=== PATIENT | female | born 1990 | race Caucasian/White ===

== ENCOUNTER 2018-08-19 08:13 | Inpatient (IN) | payer MEDICARE, OTHER ==
[2018-08-19] MEDS ORDERED: BUPIV. HCL 0.25% (2.5MG/ML)/EPI. (1:200,000) PF 30 ML VIAL IJ ONE (08:48)
[2018-08-19] MEDS ORDERED: SEVOFLURANE 250 ML LIQUID IH ONE (08:48)
[2018-08-19] MEDS ORDERED: ceFAZolin SODIUM 1 GM VIAL ONE (08:48)
[2018-08-19] MEDS ORDERED: LEVALBUTEROL NEB 1.25 MG/3 ML VIAL.NEB NEB ONE (08:48)
[2018-08-19] MEDS ORDERED: SCOPOLAMINE HYDROBROMIDE 1.5MG/72HR PATCH TD ONE (08:48)
[2018-08-19] MEDS ORDERED: LIDOCAINE HCL 1% PF 300MG/30ML VIAL ONE (08:48)
[2018-08-19] MEDS ORDERED: fentaNYL CITRATE/PF 100 MCG/2 ML INJ. ONE (08:48)
[2018-08-19] MEDS ORDERED: ROCURONIUM BROMIDE 10 MG/ML 5ML VIAL ONE (08:48)
[2018-08-19] MEDS ORDERED: LIDOCAINE HCL 2% PF 100MG/5ML VIAL IJ ONE (08:48)
[2018-08-19] MEDS ORDERED: PROPOFOL 200 MG/20 ML VIAL IV ONE (08:48)
[2018-08-19] MEDS ORDERED: LACTATED RINGERS 1,000 ML IV.SOLN IV ONE (08:48)
[2018-08-19] MEDS ORDERED: MIDAZOLAM HCL 2 MG/2 ML VIAL ONE (08:48)
[2018-08-19] MEDS ORDERED: ESMOLOL HCL 100 MG/10 ML IV ONE (08:48)
[2018-08-19] MEDS ORDERED: NORMAL SALINE 1,000 ML IV.SOLN IV ONE (08:48)
[2018-08-19] MEDS ORDERED: FAMOTIDINE 20 MG/2 ML VIAL IV ONE (08:48)
[2018-08-19] MEDS ORDERED: SUGAMMADEX SODIUM 200 MG/2 ML VIAL IV ONE (08:48)
[2018-08-19] MEDS ORDERED: HYDROcodone-ACETAMIN 7.5-325/15ML SOLN UD CUP PO PRN (13:13)
[2018-08-19] MEDS ORDERED: LEVALBUTEROL NEB 1.25 MG/3 ML VIAL.NEB IH PRN (13:13)
[2018-08-19] MEDS ORDERED: MORPHINE SULFATE 4 MG/ML VIAL IVP PRN (13:13)
[2018-08-19] MEDS ORDERED: MORPHINE SULFATE 10MG/0.5ML ORAL SOLN UD CUP PO PRN (13:13)
[2018-08-19 13:37] VITALS: BMI 41.3
[2018-08-19] MEDS: 0.9 % SODIUM CHLORIDE 1,000 ML IV SCH (13:46)
[2018-08-19] MEDS: ONDANSETRON HCL/PF 4 MG/ 2ML VIAL IVP PRN (13:52)
--- NOTE | 2018-08-19 13:58 | History and Physical Report ---
History of Present Illnes - History of Present Illness Reason for Visit: S/P LSG History of Present Illness: Patient is a 27-year-old female who has tried multiple diets and exercise programs with no success. She states that she has always struggled with her weight- admits to eating lots of fast food. It was decided to go ahead with LSG. Procedure went well- patient will be admitted and monitored s/p surgical intervention. Patient has been on a liquid diet prior to surgery so she is a risk of dehydration s/p surgery. She will be admitted for IV hydration to help hydrate patient until she is able to tolerate a sufficient oral intake, will treat pain with IV medication until patient is able to tolerate oral meds, IV antiemetics to help reduce episodes of nausea and/or vomiting. Patient will be monitored closely using telemetry. She will wear CPAP (brought in by patient) for GILES. 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 denies: Influenza Vaccine Influenza Vaccine: No, Patient Refused Pneumonia Vaccine: No Resuscitation Status: Resusciation Status Resuscitation Status Full Code Review of Systems - Review of Systems Constitutional: negative: Fever, Chills Eyes: negative: conjunctivae inflammation, eyelid inflammation ENT: negative: Ear Pain, Nose Pain, Throat Pain Respiratory: negative: Cough, Shortness of Breath Cardiovascular: negative: Chest Pain Gastrointestinal: Nausea, Abdominal Pain, Other (pt is stating that she is hungry- discussed diet). negative: Vomiting Genitourinary: negative: Dysuria Musculoskeletal: negative: Back Pain Skin: Other (incision site x 5) Neurological: negative: Weakness, Incoordination - Medications/Allergies Allergies/Adverse Reactions: Allergies Allergy/AdvReac Type Severity Reaction Status Date / Time No Known Allergies Allergy Verified 08/19/18 12:51 Home Medications: Home Medications Benztropine Mesylate 1 mg PO BID 08/19/18 Bupropion HCl [Bupropion Xl] 300 mg PO DAILY 08/19/18 Loxapine Succinate [Loxitane] 50 mg PO BID 08/19/18 Omeprazole 20 mg PO DAILY 08/19/18 Risperidone 3 mg PO BID 08/19/18 Sertraline HCl [Zoloft] 100 mg PO DAILY 08/19/18 Current Inpatient Medications: Current Inpatient Medications Hydrocodone Bitart/Acetaminophen (Hycet 7.5-325mg/15 Ml Ud Cup) 15 ml PO Q4 PRN PRN Reason: PAIN 5-7 Stop: 08/23/18 13:12 Cefazolin Sodium/Dextrose (Ancef 1 Gm/50 Ml-Dextrose) 1 gm IV Q8H [facility] Stop: 08/20/18 03:01 Enoxaparin Sodium (Lovenox) 40 mg SQ DAILY [facility] Stop: 09/03/18 08:59 Famotidine (Pepcid) 20 mg IVP BID [facility] Stop: 08/23/18 20:59 Promethazine HCl 25 mg/ Sodium (Chloride) 51 mls @ 200 mls/hr IV Q6 PRN PRN Reason: Nausea / Vomiting Stop: 08/23/18 13:12 Sodium Chloride (Normal Saline) 1,000 mls @ 150 mls/hr IV Q8H [facility] Last Admin: 08/19/18 13:46 Dose: 150 mls/hr Ketorolac Tromethamine (Toradol) 30 mg IV Q6H PRN PRN Reason: For Mild Pain Stop: 08/23/18 13:12 Levalbuterol HCl (Xopenex Neb) 1.25 mg IH Q4H PRN PRN Reason: Wheezing Morphine Sulfate () 4 mg IVP Q2 PRN PRN Reason: PAIN 8-10 Stop: 08/20/18 13:12 Morphine Sulfate (Roxanol) 10 mg PO Q4 PRN PRN Reason: PAIN 8-10 Stop: 08/23/18 13:12 Ondansetron HCl (Zofran) 4 mg IVP Q6H PRN PRN Reason: Nausea / Vomiting Stop: 08/23/18 13:12 Last Admin: 08/19/18 13:52 Dose: 4 mg Exam - Exam Vital Signs: Vital Signs (72 hours) 08/19/18 08/19/18 08/19/18 13:07 13:13 13:32 Temperature 96.8 F L 96.8 F L Pulse Rate 80 Pulse Rate [ 82 82 Pulse ox] Respiratory 20 20 Rate Blood Pressure 148/100 148/100 [Left Arm] O2 Sat by Pulse 94 94 94 Oximetry General: Alert, Oriented to Person, Oriented to Place, Oriented to Time, Cooperative, Mild distress, Morbidly Obese HEENT: PERRLA, Nose Mucous membr. moist/[place] Neck: Normal Range of Motion Carotids: no bruit Lungs: Clear to auscultation, Normal air movement, Speaks full Sentences Cardiovascular: Regular rate, Normal S1, Normal S2 Peripheral Edema: None Peripheral Pulses: 2+ Abdomen: Soft, Decreased Bowel Sounds Integumentary: Warm, Dry, Pale, Other (incision sites x 5 intact) Extremities: No edema, Normal pulses, No tenderness/swelling Neurological: Normal speech, Strength Equal Bilat, Normal tone, Sensation intact Psych/Mental Status: Mental status NL, Mood NL, Appropriate Affect, Intact Judgment Assessment/Plan - Assessment/Plan (1) Status post gastric surgery Status: Acute Current Visit: Yes Plan: Plan to admit for IV hydration, IV pain meds, and IV antiemetics. Lovenox and SCDs to help prevent DVTs, IS and frequent ambulation will be implemented. Start ice chips and advance diet as tolerated. (2) Morbid obesity due to excess calories Status: Acute Current Visit: Yes Plan: Patient is s/p gastric sleeve. We will assist patient with implementing gastric sleeve diet protocol starting with ice chips and clear liquids and advancing as tolerated once nausea is controlled and patient is able to tolerate PO (3) GILES on CPAP Status: Acute Current Visit: Yes Plan: Patient will use CPAP (4) GERD (gastroesophageal reflux disease) Status: Acute Current Visit: Yes Qualifiers: Esophagitis presence: esophagitis presence not specified Qualified Code(s): K21.9 - Gastro-esophageal reflux disease without esophagitis Plan: Will give Pepcid IV BID (5) Anxiety Status: Acute Current Visit: Yes Plan: Will hold meds at this time and monitor closely VTE Assessment - RISK FACTOR SCORE VTE RISK FACTOR SCORES: OBESITY, SMOKER, MAJOR SURGERY/ANESTHESIA TIME > 1 HOUR - RISK VTE HIGH RISK: SCORE OF 3-4 (RISK PROXIMAL DVT 4-8%) PROPHYLAXIS NEEDED (Lovenox daily, frequent ambulation, SCDs in bed, IS)
--- NOTE | 2018-08-19 14:30 | Operative Note ---
PREOPERATIVE DIAGNOSIS: 1. Morbid obesity. 2. Sleep apnea. POSTOPERATIVE DIAGNOSIS: 1. Morbid obesity. 2. Sleep apnea. PROCEDURES PERFORMED: 1. Laparoscopic vertical sleeve gastrectomy. 2. Upper gastrointestinal endoscopy. SURGEON: Morgan Mead M.D. INDICATIONS FOR PROCEDURE: Ms. Fan is a 27-year-old female who was noted to have features of morbid obesity with the above-listed comorbidity. She was noted to have a weight of 264 pounds with a BMI of 40.7. The patient was advised laparoscopic vertical sleeve gastrectomy and possible hiatal hernia repair. The patient showed understanding and agreed to proceed. DESCRIPTION OF PROCEDURE: After explaining to the patient in detail and informed consent was obtained, the patient was identified in the preoperative holding area. The patient was transferred to the operating room and was placed in supine position. Sequential compressive devices were placed for DVT prophylaxis. Preoperative antibiotics were given. After induction of anesthesia, the abdomen was prepped and draped in a sterile fashion. Through a left upper quadrant 1-cm incision, and using Optiview technique, the peritoneal cavity was entered and pneumoperitoneum was created. Thereafter, under direct vision, another 5-mm trocar was placed in the left midabdomen and another 15-mm trocar was placed in the right midabdomen. Through a 1-cm incision in the right subcostal region, another 5-mm trocar was placed. Through a 1-cm incision in the epigastrium, a Aguilar retractor was introduced and the left lobe of the liver was retracted. On initial inspection, the patient was noted to have no evidence of hiatal hernia. I took down the gastroepiploic vessels using a LigaSure. This was continued superiorly. The short gastric vessels were taken down. The gastrophrenic ligament was divided and the Angle of His was mobilized. The posterior attachments of the stomach on the pancreas were released. Distally, the gastroepiploic vessels were taken down up to about 4 cm proximal to the pylorus. At this point, a #38 [place]st Bougie was introduced into the stomach and was placed along the lesser curve. The stomach was then divided in a vertical fashion with multiple Endo ZEV Covidien Black Load Staplers. The first firing was directed outwards towards the greater curvature. Subsequent firings were directed towards the Angle of His to create a loose sleeve around the #38 [place] bougie. The bougie was then removed and an upper GI endoscopy was performed at this point. The scope was introduced into the esophagus and was gradually advanced into the stomach. The GE junction appeared normal. The sleeve size appeared normal. No evidence of any active bleeding was noted. The stomach was insufflated with air and irrigation of fluid along the staple line revealed no evidence of air leak. The stomach was then suctioned out and the scope was removed. Absolute hemostasis was ensured. Thorough saline irrigation was given. The Aguilar retractor was removed. Approximately 10 mL of a lidocaine- Marcaine mix was instilled under the left hemidiaphragm. The sleeve gastrectomy specimen was removed. The abdomen was then deflated. The incisions were closed with 4-0 Monocryl. Dermabond was applied. Approximately 10 mL of a lidocaine- Marcaine mix was injected into all the incisions. The patient was awakened from anesthesia and was transferred to the recovery room in stable condition. ESTIMATED BLOOD LOSS: Approximately 50 mL. CONDITION OF THE PATIENT: Stable. FLUIDS GIVEN: Per Anesthesia note. SPECIMEN(S) SENT: Sleeve gastrectomy specimen. COMPLICATIONS: None. ANESTHESIA: General. Morgan Mead M.D. CASSIE/susan (Please copy [facility] provider when applicable) Job #[id number] ANA
[2018-08-19] MEDS: KETOROLAC TROMETHAMINE 30 MG/1ML VIAL IV PRN (15:11)
[2018-08-19] MEDS: ceFAZolin SODIUM 1 GM/50 ML PIGGYBACK IV SCH (18:04)
[2018-08-19] MEDS: FAMOTIDINE 20 MG/2 ML VIAL IVP SCH (20:39)
[2018-08-20] MEDS: 0.9 % SODIUM CHLORIDE 1,000 ML IV SCH ×7 (03:31→23:45)
[2018-08-20] MEDS: ceFAZolin SODIUM 1 GM/50 ML PIGGYBACK IV SCH (03:31)
[2018-08-20] MEDS: ONDANSETRON HCL/PF 4 MG/ 2ML VIAL IVP PRN (06:09)
[2018-08-20 06:56] LABS: eGFR (Non-African) > 60
--- NOTE | 2018-08-20 07:05 | Inpatient Progress Note ---
Subjective - Required Recertification Statement I anticipate X number of days because-include discharge plan: 1 - Review of Systems Events since last encounter: Patient states that she had a "decent" night. She had some nausea- no vomiting- she was encouraged to sip her drinks and wait in between drinks- she states that her pain is tolerable and pain medications are working. She has been up walking in the red, wearing SCDs while in bed, and using Incentive Spirometry- incision sites are dry and intact. General: Denies: Chills, Malaise HEENT: Denies: Head Aches, Dysphasia Cardiovascular: Denies: Chest Pain Gastrointestinal: Nausea, Abdominal Pain. Denies: Vomiting Genitourinary: Denies: Dysuria Musculoskeletal: Denies: Back Pain Neurological: Denies: Weakness, Incoordination Objective - Exam Vitals and I&O: Vital Signs Temp 98.2 F 08/20/18 06:00 Pulse 90 08/20/18 06:00 Resp 18 08/20/18 06:00 BP 143/78 08/20/18 06:00 Pulse Ox 94 08/20/18 06:00 Intake & Output 08/19/18 08/19/18 08/20/18 11:59 23:59 11:59 Intake Total 620 1200 Output Total 700 900 Balance -80 300 Weight 119.748 kg Intake: IV 450 1200 Left Hand 450 1200 Oral 170 Output: Urine 700 900 Other: Voiding Method Toilet Toilet # Voids 0 1 # Bowel Movements 0 General: Alert, Oriented to Person, Oriented to Place, Oriented to Time, Cooperative, No acute distress, Morbidly Obese HEENT: Atraumatic, Mouth Mucous membr. moist/[place], Nose Mucous membr. moist/[place] Neck: Supple, +2 carotid pulse wo bruit Lungs: Clear to auscultation, Normal air movement, Speaks full Sentences Cardiovascular: Regular rate, Normal S1, Normal S2 Abdomen: Normal bowel sounds, Soft Extremities: Normal pulses, No tenderness/swelling Skin: Normal, [place], Warm, Dry, Other (incision sites dry and intact) Neurological: Normal gait, Normal speech, Strength Equal Bilat, Normal tone, Sensation intact Psych/Mental Status: Mental status NL, Mood NL, Appropriate Affect, Intact Judgment - Results Results: Laboratory Results WBC 15.40 K/ul (4.00-12.00) H 08/20/18 06:00 RBC 4.89 M/ul (3.90-5.20) 08/20/18 06:00 Hgb 12.8 g/dL (11.5-16.0) 08/20/18 06:00 Hct 38.5 % (34.5-46.5) 08/20/18 06:00 MCV 79.0 fl (80.0-100.0) L 08/20/18 06:00 MCH 26.2 pg (28.0-34.0) L 08/20/18 06:00 MCHC 33.2 g/dL (30.0-36.0) 08/20/18 06:00 RDW 13.2 % (11.3-14.3) 08/20/18 06:00 Plt Count 323 K/mm3 (130-400) 08/20/18 06:00 Sodium 134 mmol/L (137-145) L 08/20/18 06:00 Potassium 3.6 mmol/L (3.5-5.1) 08/20/18 06:00 Chloride 106 mmol/L (98-107) 08/20/18 06:00 Carbon Dioxide 21 mmol/L (22-30) L 08/20/18 06:00 BUN 7 mg/dL (7-17) 08/20/18 06:00 Creatinine 0.60 mg/dL (0.52-1.04) 08/20/18 06:00 Estimated Creat Clear 310 08/20/18 06:00 Est GFR ( Amer) > 60 (60-) 08/20/18 06:00 Est GFR (Non-Af Amer) > 60 (60-) 08/20/18 06:00 Glucose 99 mg/dL (74-106) 08/20/18 06:00 Calcium 8.1 mg/dL (8.4-10.2) L 08/20/18 06:00 Total Bilirubin 0.3 mg/dL (0.2-1.3) 08/20/18 06:00 AST 40 U/L (15-46) 08/20/18 06:00 ALT 20 U/L (0-35) 08/20/18 06:00 Alkaline Phosphatase 148 U/L (38-126) H 08/20/18 06:00 Total Protein 6.7 g/dL (6.3-8.2) 08/20/18 06:00 Albumin 3.5 g/dL (3.5-5.0) 08/20/18 06:00 Assessment/Plan - Assessment/Plan (1) Status post gastric surgery Status: Acute Current Visit: Yes Plan: Will continue to have patient ambulate frequently in the red, wear SCDs while in bed, frequent use of incentive spirometer, continue IVF until patient can take in sufficient oral intake- pt is tolerating po meds (2) Morbid obesity due to excess calories Status: Acute Current Visit: Yes (3) GILES on CPAP Status: Acute Current Visit: Yes Plan: Doing well- will continue CPAP (4) GERD (gastroesophageal reflux disease) Status: Acute Current Visit: Yes Qualifiers: Esophagitis presence: esophagitis presence not specified Qualified Code(s): K21.9 - Gastro-esophageal reflux disease without esophagitis Plan: Will continue with Pepcid IV BID (5) Anxiety Status: Acute Current Visit: Yes Plan: stable will continue to monitor
[2018-08-20 07:11] LABS: SEGMENTED NEUTROPHILS % 71 % (39-79)
[2018-08-20 07:12] LABS: BASOPHILS % 4 % (0-2)
[2018-08-20] MEDS: PROMETHAZINE HCL 25 MG in 0.9 % SODIUM CHLORIDE 50 ML IV PRN ×3 (08:33→21:36)
[2018-08-20] MEDS: KETOROLAC TROMETHAMINE 30 MG/1ML VIAL IV PRN (08:37)
[2018-08-20] MEDS: FAMOTIDINE 20 MG/2 ML VIAL IVP SCH ×2 (08:40→20:09)
[2018-08-20] MEDS ORDERED: ENOXAPARIN SODIUM 40 MG/0.4 ML DISP.SYRIN SQ SCH (09:00)
[2018-08-21] MEDS: PROMETHAZINE HCL 25 MG in 0.9 % SODIUM CHLORIDE 50 ML IV PRN (03:23)
[2018-08-21 05:50] LABS: eGFR (Non-African) > 60
--- NOTE | 2018-08-21 05:54 | Discharge Summary ---
Discharge Summary - Discharge [facility] Admission Date: 08/19/18 Discharge Date: 08/21/18 History of Present Illness: Patient is a 27-year-old female who has tried multiple diets and exercise programs with no success. She states that she has always struggled with her weight- admits to eating lots of fast food. It was decided to go ahead with LSG. Procedure went well- patient will be admitted and monitored s/p surgical intervention. Patient has been on a liquid diet prior to surgery so she is a risk of dehydration s/p surgery. She will be admitted for IV hydration to help hydrate patient until she is able to tolerate a sufficient oral intake, will treat pain with IV medication until patient is able to tolerate oral meds, IV antiemetics to help reduce episodes of nausea and/or vomiting. Patient will be monitored closely using telemetry. She will wear CPAP (brought in by patient) for GILES. Condition at Discharge: Stable Home Medications: Ambulatory Orders Medication Instructions Recorded Benztropine Mesylate 1 mg PO BID 08/19/18 Bupropion HCl [Bupropion Xl] 300 mg PO DAILY 08/19/18 Loxapine Succinate [Loxitane] 50 mg PO BID 08/19/18 Omeprazole 20 mg PO DAILY 08/19/18 Risperidone 3 mg PO BID 08/19/18 Sertraline HCl [Zoloft] 100 mg PO DAILY 08/19/18 Consultations this Visit: None Procedures this Visit: Other (S/P LSG) Allergies/Adverse Reactions: Allergies Allergy/AdvReac Type Severity Reaction Status Date / Time No Known Allergies Allergy Verified 08/19/18 12:51 Discharge Summary: Patient is a 27-year-old female that underwent the gastric sleeve procedure and has done well. She has been very cooperative with her care by ambulating frequently, using her incentive spirometer, and wearing her SCDs while in bed. She has been compliant with her diet during hospitalization. She is having minimal discomfort at this time and minimal nausea- she has is passing gas and belching. She is aware of discharge instructions and what she can and cannot do post surgical- she is aware of the strict diet she must follow to decrease discomfort and have success after procedure. She has family support and family will be taking her home- medications written by surgeon given to patient. She feels ready to go home. Hospital Course: Patient received pain medications, antiemetics, and IVF and was transitioned to oral. She has been up ambulating and using incentive spirometer. - Final Diagnosis (1) Status post gastric surgery Problems: Incision without redness or drainage, positive bowel sounds, minimal discomfort, belching and flatus, no extremity pain or edema Right or Left: Right (2) Morbid obesity due to excess calories Problems: Continue with bariatric sleeve diet- clear liquids today and start full liquids tomorrow Right or Left: Right (3) GILES on CPAP Problems: stable on CPAP Right or Left: Right (4) GERD (gastroesophageal reflux disease) Problems: stable Right or Left: Right (5) Anxiety Problems: Stable Right or Left: Right
[2018-08-21 08:01] VITALS: BP 139/86
[2018-09-06] MEDS ORDERED: LABETALOL HCL 20 MG/4 ML SYRINGE IV ONE (15:42)
[2018-09-06] MEDS ORDERED: fentaNYL CITRATE/PF 100 MCG/2 ML INJ. ONE (15:42)
[2018-09-06] MEDS ORDERED: ONDANSETRON HCL/PF 4 MG/ 2ML VIAL ONE (15:42)
== END 2018-08-21 07:55 | disposition home or self-care (01) | DRG 621 ==
LOC: OPSURG 08:13 → SOUTH 08:14 → UNDOADMIN 13:00 → UNDODISIN 08-21 07:55
PROVIDERS: ADMIT Nurse Practitioner Family; ATTEND Nurse Practitioner Family
PROC: 0DB64Z3 Excision of Stomach, Percutaneous Endoscopic Approach, Vertical (ICD-10-PCS; principal; 2018-08-19)
DX: E66.01 Morbid (severe) obesity due to excess calories (principal); Z68.41 Body mass index [BMI] 40.0-44.9, adult; G47.33 Obstructive sleep apnea (adult) (pediatric); K21.9 Gastro-esophageal reflux disease without esophagitis; F41.9 Anxiety disorder, unspecified; F31.9 Bipolar disorder, unspecified; Z87.891 Personal history of nicotine dependence; Z79.899 Other long term (current) drug therapy; Z91.048 Other nonmedicinal substance allergy status
CPT/HCPCS: 43235; 43775; 80048; 80053; 85025; 88305; 97116; 97161; 97165; 97530; A9270; J0690; J1650; J1885; J2001; J2250; J2405; J2550; J2704; J3010; J7030; J7120; J7614; 99221; 99231; 99232; 99238